=== PATIENT | male | born 1980 | race Caucasian/White ===

== ENCOUNTER 2023-09-09 10:28 | Emergency (ER) | payer OTHER, MEDICAID ==
[~2023-09-09] VITALS: Ht 167.6 cm; Wt 104.3 kg
[2023-09-09] MEDS ORDERED: AMLO10TA4 PO (12:15)
[2023-09-09 12:23] VITALS: BP 161/114; TEMP 98; O2SAT 99
== END 2023-09-09 12:23 | disposition home or self-care (01) ==
LOC: ER 10:32
DX: I10 Essential (primary) hypertension (principal); E11.9 Type 2 diabetes mellitus without complications
CPT/HCPCS: 71045-TC; 82962-TC